=== PATIENT | male | born 1975 | race Caucasian/White ===

== ENCOUNTER 2023-06-25 08:58 | Emergency (ER) | payer MEDICAID, SELFPAY ==
[2023-06-25] VITALS (7 sets, daily range): BP systolic 121–164; BP diastolic 74–105; PULSE 65–87; RESP 20–22; TEMP 36.2–37; O2SAT 99–100
--- NOTE | 2023-06-25 08:45 | RT.EKG_ITS ---
APPROVED REPORT Exam: Resting ECG Reason for Exam: Chest pain Patient Location: E HR:79 bpm ECG Measurements Heart Rate 79 AXIS IL 130 P 31 QRSd 86 QRS 13 QT 379 T 35 QTc 435 Conclusion Sinus rhythm...normal P axis, V-rate 60- 99
[2023-06-25] MEDS: LORazepam 2 MG/ML VIAL 1 MG IVP ×3 (09:25→10:44)
[2023-06-25 09:42] LABS: Abs Immature Grans 0.09 10^3/uL (0.0-0.06); Absolute Basophil Count 0.06 10^3/uL (0.0-0.2); Absolute Eosinophil Count 0.18 10^3/uL (0.0-0.7); Absolute Lymphocyte Count 2.83 10^3/uL (1.2-3.4); Absolute Monocyte Count 0.95 10^3/uL (0.1-0.8); Basophils % 0.4 %; Eosinophils % 1.3 %; HCT 34.5 % (40.0-50.0); HGB 11.7 g/dL (13.5-17.5); Immature Grans % 0.6 %; Lymphocytes % 19.9 %; MCH 27.9 pg (27.0-33.0); MCHC 33.9 % (32.0-36.0); MCV 82 fL (80-95); Monocytes % 6.7 %; Neutrophils % 71.1 %; Platelet Count 399 10^3/uL (130-400); RDW 15.1 % (11.8-14.1); RDW-SD 44.1 fL
--- NOTE | 2023-06-25 09:45 | DI.RAD_ITS ---
Exam(s) XR CHEST 2V PA LATERAL EXAM: XR CHEST 2V PA LATERAL CLINICAL HISTORY: chest pain TECHNIQUE: 2D digital imaging was performed of the chest. Two images were obtained. PA and lateral views were obtained. COMPARISON: No exams were available for comparison FINDINGS: MEDIASTINUM: Normal. HEART: Normal. PULMONARY VASCULATURE: Normal. LUNGS: Clear. PLEURAL SPACE: No pleural effusion or pneumothorax. BONE:Within normal limits for the patient's age. OTHER FINDINGS:Normal. IMPRESSION: No acute pulmonary findings. DATA REPOSITORY: RADIATION DOSE DELIVERED:
[2023-06-25 10:21] LABS: ALT 29 U/L (16-63); AST 15 U/L (15-37); Albumin 3.7 g/dL (3.4-5.0); Alkaline Phosphatase 81 U/L (46-116); BUN 12 mg/dL (7-18); Bilirubin, Total 0.5 mg/dL (0.2-1.0); CREATININE 1.2 mg/dL (0.70-1.30); Calcium 9.4 mg/dL (8.5-10.1); Chloride 106 mmol/L (98-107); Glucose 117 mg/dL (74-106); Lipase 50 U/L (16-77); Potassium 3.5 mmol/L (3.5-5.1); Sodium 142 mmol/L (136-145); TSH (W/Ref FT4) 2.04 uIU/mL (0.36-3.74); Total Protein 7.7 g/dL (6.4-8.2); Troponin I < 50 ng/L (< or =60)
[2023-06-25 10:22] LABS: ETHANOL BLOOD < 3.0 mg/dL (<10)
[2023-06-25 11:05] LABS: COVID-19 PCR Negative (Negative); Influenza A PCR Negative (Negative); Influenza B PCR Negative (Negative); RSV PCR Negative (Negative); Source Nasopharynx
[2023-06-25] MEDS: hydrOXYzine HCL 25 MG TAB 50 MG PO ×2 (11:30→21:05)
--- NOTE | 2023-06-25 12:16 | W.ED.GENAD ---
Discharge Plan Discharge Details Chief Complaint: Chest Pain Primary Care Provider: Dane Contreras ED Provider: Hermila Toledo Home Meds and New Rx's Prescriptions: No Action ibuprofen 200 MG tablet 400 mg PO QID HPI <BERNADETTE Camacho Last Filed: 06/25/23 13:48> General Date/Time Provider Initiated Documentation: 06/25/23 08:59. HPI Narrative: This 47-year-old male with history of polysubstance abuse, most recently fentanyl inhalation presents with report of suicidal ideation with worsening depression. Has had chest pain for the past 3 days denies any associated shortness of breath or nausea or vomiting. Denies known cardiac history. Denies cocaine use. History of anxiety with similar presentation. Denies any calf pain or swelling or history of coagulopathy. Specifically no history of recent flights, surgeries, long drives for pulmonary embolism. Patient is resting comfortably in the room at time of reassessment, he does appear anxious. Denies exertional chest pain or shortness of breath. Has not previously had a stress test. Related Data Home Medications Medication Instructions Recorded Confirmed ibuprofen 200 mg tablet 400 mg PO QID 04/27/17 06/25/23 Allergies Allergy/AdvReac Type Severity Reaction Status Date / Time No Known Drug Allergies Allergy Unknown Unverified 07/08/17 13:56 General Stated Complaint: Chest Pain BOBBY: 2 Exam <BERNADETTE Camacho Last Filed: 06/25/23 13:48> Narrative Exam Narrative: Alert, oriented, pupils equal round reactive to light and accommodation, lungs clear to auscultation bilaterally, cardiac rate rhythm regular, reproducible chest wall pain, no rashes or lesions, no abdominal tenderness, no pallor, alert and oriented x 4, no peripheral edema, distal pulses intact, nontender calf exam Course <BERNADETTE Camacho Last Filed: 06/25/23 13:48> Vital Signs Vital signs: Vital Signs Temperature 37.0 C 06/25/23 08:57 Pulse 87 06/25/23 08:57 Respiratory Rate 20 06/25/23 08:57 Blood Pressure 155/105 H 06/25/23 08:57 Pulse Oximetry 100 06/25/23 08:57 Temperature 37.0 C 06/25/23 08:57 Temperature Source Temporal Artery Scan 06/25/23 08:57 Pulse 87 06/25/23 08:57 Pulse 65 06/25/23 09:50 Respiratory Rate 22 06/25/23 09:50 Respiratory Effort Incrsd Work of Breathing 06/25/23 09:07 Respiratory Depth Normal 06/25/23 09:07 Respiratory Pattern Normal 06/25/23 09:07 Blood Pressure 155/105 H 06/25/23 08:57 Blood Pressure Position Sitting 06/25/23 08:57 Pulse Oximetry 100 06/25/23 08:57 Oxygen Delivery Method Room Air 06/25/23 08:57 Oxygen Flow Rate 0 06/25/23 08:57 Pain Level 7 06/25/23 09:07 Lab/Test Results Lab/Test Results: Laboratory Tests Range/Units 06/25/23 06/25/23 06/25/23 09:20 09:20 09:20 WBC (4.4-10.8) 10^3/uL 14.20 H RBC (4.36-5.78) 10^6/uL 4.20 L Hgb (13.5-17.5) g/dL 11.7 L Hct (40.0-50.0) % 34.5 L MCV (80-95) fL 82 MCH (27.0-33.0) pg 27.9 MCHC (32.0-36.0) % 33.9 RDW (11.8-14.1) % 15.1 H Plt Count (130-400) 10^3/uL 399 MPV (8.0-11.0) fL 10.0 Immature Gran % % 0.6 Neutrophils % % 71.1 Lymphocytes % % 19.9 Monocytes % % 6.7 Eosinophils % % 1.3 Basophils % % 0.4 Nucleated RBC % (0.0-0.3) % 0.0 Absolute Neutrophils (1.2-6.7) 10^3/uL 10.10 H Absolute Lymphocytes (1.2-3.4) 10^3/uL 2.83 Absolute Monocytes (0.1-0.8) 10^3/uL 0.95 H Absolute Eosinophils (0.0-0.7) 10^3/uL 0.18 Absolute Basophils (0.0-0.2) 10^3/uL 0.06 Sodium (136-145) mmol/L 142 Potassium (3.5-5.1) mmol/L 3.5 Chloride (98-107) mmol/L 106 Carbon Dioxide (21.0-32.0) mmol/L 23.0 Anion Gap (3-11) mmol/L 13.0 H BUN (7-18) mg/dL 12 Creatinine (0.70-1.30) mg/dL 1.2 Est GFR (CKD-EPI 2020) (mL/min/1.73m2) 74.60 Glucose (74-106) mg/dL 117 H Calcium (8.5-10.1) mg/dL 9.4 Total Bilirubin (0.2-1.0) mg/dL 0.5 AST (15-37) U/L 15 ALT (16-63) U/L 29 Alkaline Phosphatase (46-116) U/L 81 Troponin I (< or =60) ng/L < 50 Cancelled Total Protein (6.4-8.2) g/dL 7.7 Albumin (3.4-5.0) g/dL 3.7 Lipase (16-77) U/L 50 TSH (0.36-3.74) uIU/mL 2.04 Ethyl Alcohol (<10) mg/dL < 3.0 Cancelled COVID-19 Source SARS-CoV-2 (PCR) (Negative) Influenza Type A (PCR) (Negative) Influenza Type B (PCR) (Negative) RSV (PCR) (Negative) Range/Units 06/25/23 10:16 WBC (4.4-10.8) 10^3/uL RBC (4.36-5.78) 10^6/uL Hgb (13.5-17.5) g/dL Hct (40.0-50.0) % MCV (80-95) fL MCH (27.0-33.0) pg MCHC (32.0-36.0) % RDW (11.8-14.1) % Plt Count (130-400) 10^3/uL MPV (8.0-11.0) fL Immature Gran % % Neutrophils % % Lymphocytes % % Monocytes % % Eosinophils % % Basophils % % Nucleated RBC % (0.0-0.3) % Absolute Neutrophils (1.2-6.7) 10^3/uL Absolute Lymphocytes (1.2-3.4) 10^3/uL Absolute Monocytes (0.1-0.8) 10^3/uL Absolute Eosinophils (0.0-0.7) 10^3/uL Absolute Basophils (0.0-0.2) 10^3/uL Sodium (136-145) mmol/L Potassium (3.5-5.1) mmol/L Chloride (98-107) mmol/L Carbon Dioxide (21.0-32.0) mmol/L Anion Gap (3-11) mmol/L BUN (7-18) mg/dL Creatinine (0.70-1.30) mg/dL Est GFR (CKD-EPI 2020) (mL/min/1.73m2) Glucose (74-106) mg/dL Calcium (8.5-10.1) mg/dL Total Bilirubin (0.2-1.0) mg/dL AST (15-37) U/L ALT (16-63) U/L Alkaline Phosphatase (46-116) U/L Troponin I (< or =60) ng/L Total Protein (6.4-8.2) g/dL Albumin (3.4-5.0) g/dL Lipase (16-77) U/L TSH (0.36-3.74) uIU/mL Ethyl Alcohol (<10) mg/dL COVID-19 Source Nasopharynx SARS-CoV-2 (PCR) (Negative) Negative Influenza Type A (PCR) (Negative) Negative Influenza Type B (PCR) (Negative) Negative RSV (PCR) (Negative) Negative Medical Decision Making <BERNADETTE Camacho - Last Filed: 06/25/23 13:48> 39-year-old male, alert, oriented, of decisional capacity. Last used fentanyl approximately 4 days prior to arrival. Patient is in no acute distress, he is resting comfortably in room he has had 3 days of constant chest pain. He has received several milligrams of Ativan but continues to ask for Ativan and does not appear anxious so I will use small doses as needed. I will also give 50 mg of hydroxyzine. I do not think this is cardiac in nature. After patient was medically cleared with EKG that is nonischemic and negative troponin and labs, he was medically cleared and evaluated by mental health. He will be voluntary status for placement at this time. I have offered patient Suboxone and multiple occasions and he has declined. I will order Ativan and hydroxyzine as needed for anxiety. Patient denies any additional substance use. Chest x-ray without evidence of pneumonia or acute process. Gap mildly elevated, received 1 L of IV fluids. Will move to some ZB for further care and evaluation for suicidality and depression. CPSO ordered Quality:SDOH Health Related Social Needs: Health related social needs risk of homeless, food insecurity, transpo insecurity, material hardship <Hermila Toledo NP - Last Filed: 06/25/23 23:05> 39-year-old male, alert, oriented, of decisional capacity. Last used fentanyl approximately 4 days prior to arrival. Patient is in no acute distress, he is resting comfortably in room he has had 3 days of constant chest pain. He has received several milligrams of Ativan but continues to ask for Ativan and does not appear anxious so I will use small doses as needed. I will also give 50 mg of hydroxyzine. I do not think this is cardiac in nature. After patient was medically cleared with EKG that is nonischemic and negative troponin and labs, he was medically cleared and evaluated by mental health. He will be voluntary status for placement at this time. I have offered patient Suboxone and multiple occasions and he has declined. I will order Ativan and hydroxyzine as needed for anxiety. Patient denies any additional substance use. Chest x-ray without evidence of pneumonia or acute process. Gap mildly elevated, received 1 L of IV fluids. Will move to some ZB for further care and evaluation for suicidality and depression. CPSO ordered 1542: SJ: Assumed care of patient from colleague Trish FLEMING. At the time of sign out patient is calm and cooperative, awaiting voluntary placement for . 2144: Patient given Hydroxyzine 50 mg at 2100, now rocking back and forth, tearful, c/o anxiety. Lorazepam 0.5mg PO ordered. Care is to be handed off to the oncoming provider Elías Nicolas DO pending [facility] voluntary placement. Patient has remained cooperative. Vital signs of remained stable. Medical Records Medical records reviewed: Yes I reviewed the patient's medical records. Lab Data Lab results reviewed: Yes I reviewed the patient's lab results. Labs: Laboratory Tests Range/Units 06/25/23 06/25/2306/24/24 09:20 09:20 09:20 WBC (4.4-10.8) 10^3/uL 14.20 H RBC (4.36-5.78) 10^6/uL 4.20 L Hgb (13.5-17.5) g/dL 11.7 L Hct (40.0-50.0) % 34.5 L MCV (80-95) fL 82 MCH (27.0-33.0) pg 27.9 MCHC (32.0-36.0) % 33.9 RDW (11.8-14.1) % 15.1 H Plt Count (130-400) 10^3/uL 399 MPV (8.0-11.0) fL 10.0 Immature Gran % % 0.6 Neutrophils % % 71.1 Lymphocytes % % 19.9 Monocytes % % 6.7 Eosinophils % % 1.3 Basophils % % 0.4 Nucleated RBC % (0.0-0.3) % 0.0 Absolute Neutrophils (1.2-6.7) 10^3/uL 10.10 H Absolute Lymphocytes (1.2-3.4) 10^3/uL 2.83 Absolute Monocytes (0.1-0.8) 10^3/uL 0.95 H Absolute Eosinophils (0.0-0.7) 10^3/uL 0.18 Absolute Basophils (0.0-0.2) 10^3/uL 0.06 Sodium (136-145) mmol/L 142 Potassium (3.5-5.1) mmol/L 3.5 Chloride (98-107) mmol/L 106 Carbon Dioxide (21.0-32.0) mmol/L 23.0 Anion Gap (3-11) mmol/L 13.0 H BUN (7-18) mg/dL 12 Creatinine (0.70-1.30) mg/dL 1.2 Est GFR (CKD-EPI 2020) (mL/min/1.73m2) 74.60 Glucose (74-106) mg/dL 117 H Calcium (8.5-10.1) mg/dL 9.4 Total Bilirubin (0.2-1.0) mg/dL 0.5 AST (15-37) U/L 15 ALT (16-63) U/L 29 Alkaline Phosphatase (46-116) U/L 81 Troponin I (< or =60) ng/L < 50 Cancelled Total Protein (6.4-8.2) g/dL 7.7 Albumin (3.4-5.0) g/dL 3.7 Lipase (16-77) U/L 50 TSH (0.36-3.74) uIU/mL 2.04 Urine Opiates Screen (Negative) Urine Methadone Screen (Negative) Ur Barbiturates Screen (Negative) Ur Tricyclics Screen (Negative) Ur Amphetamines Screen (Negative) U Benzodiazepines Scrn (Negative) Urine Cocaine Screen (Negative) Ur THC Screen (Negative) Ethyl Alcohol (<10) mg/dL < 3.0 Cancelled COVID-19 Source SARS-CoV-2 (PCR) (Negative) Influenza Type A (PCR) (Negative) Influenza Type B (PCR) (Negative) RSV (PCR) (Negative) Range/Units 06/25/23 06/25/23 10:16 13:25 WBC (4.4-10.8) 10^3/uL RBC (4.36-5.78) 10^6/uL Hgb (13.5-17.5) g/dL Hct (40.0-50.0) % MCV (80-95) fL MCH (27.0-33.0) pg MCHC (32.0-36.0) % RDW (11.8-14.1) % Plt Count (130-400) 10^3/uL MPV (8.0-11.0) fL Immature Gran % % Neutrophils % % Lymphocytes % % Monocytes % % Eosinophils % % Basophils % % Nucleated RBC % (0.0-0.3) % Absolute Neutrophils (1.2-6.7) 10^3/uL Absolute Lymphocytes (1.2-3.4) 10^3/uL Absolute Monocytes (0.1-0.8) 10^3/uL Absolute Eosinophils (0.0-0.7) 10^3/uL Absolute Basophils (0.0-0.2) 10^3/uL Sodium (136-145) mmol/L Potassium (3.5-5.1) mmol/L Chloride (98-107) mmol/L Carbon Dioxide (21.0-32.0) mmol/L Anion Gap (3-11) mmol/L BUN (7-18) mg/dL Creatinine (0.70-1.30) mg/dL Est GFR (CKD-EPI 2020) (mL/min/1.73m2) Glucose (74-106) mg/dL Calcium (8.5-10.1) mg/dL Total Bilirubin (0.2-1.0) mg/dL AST (15-37) U/L ALT (16-63) U/L Alkaline Phosphatase (46-116) U/L Troponin I (< or =60) ng/L Total Protein (6.4-8.2) g/dL Albumin (3.4-5.0) g/dL Lipase (16-77) U/L TSH (0.36-3.74) uIU/mL Urine Opiates Screen (Negative) Negative Urine Methadone Screen (Negative) Negative Ur Barbiturates Screen (Negative) Negative Ur Tricyclics Screen (Negative) Negative Ur Amphetamines Screen (Negative) Negative U Benzodiazepines Scrn (Negative) Negative Urine Cocaine Screen (Negative) Negative Ur THC Screen (Negative) Negative Ethyl Alcohol (<10) mg/dL COVID-19 Source Nasopharynx SARS-CoV-2 (PCR) (Negative) Negative Influenza Type A (PCR) (Negative) Negative Influenza Type B (PCR) (Negative) Negative RSV (PCR) (Negative) Negative PFSH <BERNADETTE Camacho - Last Filed: 06/25/23 13:48> Medical History Obesity Chronic back pain Pulmonary nodules Renal colic Surgical History Excision, Pilonidal Cyst Family History Mother No problems noted. Father Diabetes Essential hypertension History of coronary artery stent placement Kidney stones Son No problems noted. Social History Smoking/Tobacco Use Status: Never Smoking risk assessment performed?: Yes Alcohol Intake: never Drug use: Never Housing: other Do you feel safe at home: No Do you feel safe in your relationship?: Yes Sign Out <BERNADETTE Camacho - Last Filed: 06/25/23 13:48> Sign Out Data: Sign Out Comment: hx of substance abuse( fentanyl) and SI/depression. pending voluntary placement for . Last updated by Trish Carter PA at 06/25/23 15:36 Sign Out Comment: Pending voluntary placement. History of fentanyl abuse. Patient has received hydroxyzine 50 mg and 0.5 mg of lorazepam. Has been sleeping throughout most of his stay. Remains cooperative. Last updated by Hermila Toledo NP at 06/25/23 23:04
--- NOTE | 2023-06-25 12:20 | PDOC.MHCN_ITS ---
Date of service: 06/25/23 Time of Service: 10:50 PHQ-9 Over the last 2 weeks, how often have you been bothered by any of the following problems? 1. Little interest or pleasure in doing things: nearly every day 2. Feeling down, depressed, or hopeless: nearly every day 3. Trouble falling or staying asleep, or sleeping too much: nearly every day 4. Feeling tired or having little energy: nearly every day 5. Poor appetite or overeating: nearly every day 6. Feeling bad about yourself - or that you are a failure or have let yourself and your family down: nearly every day 7. Trouble concentrating on things, such as reading the newspaper or watching television: nearly every day 8. Moving or speaking so slowly that other people could have noticed? - Or the opposite - being so fidgety or restless that you have been moving around a lot more than usual: nearly every day 9. Thoughts that you would be better off or of hurting yourself in some way: nearly every day Total score: 27 If you checked off any problems, how difficult have these problems made it for you to do your work, take care of things at home, or get along with other people?: extremely difficult Source: Developed by Drs. Nick Dinh, Leesa Ruffin, Satya Alvarez and colleagues, with an educational jorge alberto from [employer]. Suicide Severity Rate CSSRS Have you wished you were or wished you could go to sleep and not wake up?: Yes Have you actually had any thoughts of killing yourself?: Yes CSSRS2 Have you been thinking about how you might do this?: Yes Have you had these thoughts and had some intention of acting on them?: No Have you started to work out or worked out the details of how to kill yourself? Do you intend to carry out this plan?: No CSSRS3 Have you ever done anything, started to do anything or prepared to do anything to end your life?: No CSSRS4 Was this within the past three months?: No Screening Score Total Score: 4 Screening: Positive Mental Health Emergency Note Release [facility] release signed:: Yes Reason for Visit The client is not known to [facility]. The client presented to [facility] ED via EMS for chief complaint of chest pain. Per report of the client he has been having chest pain for the last 2-3 days, however was unsure if it was related to heart issues or anxiety. During [facility] provider Trish Brochures assessment of the client he endorsed suicidal ideations, however denied intent or plan. The client reports that he has never been hospitalized for his mental health, however has gone to [place] detox 2x for help with his substance use. This software writer meets in person with the client at [facility] ER. In the last 2 weeks has the pt presented for ES prior to today?: No Client Information Client is: New Well Housed: No,status: Homeless Stable housing Non Suicidal Self Injury Current: No History: No Safety Risk/Harm to Self or Others Current Ideation to Harm Self or Others: Yes to self. ( Client reports passive suicidal ideations, however denies plan. On a scale of 0-10 with 0 being that he will be safe if he leaves the hospital and 10 being that he will find a way to by suicide rates himself a 08/17. ) Intent: yes, has intent. Plan: no.does not have a plan. History of suicide attempt: No history of suicide attempt reported Risk: Does risk to harm exist?: yes. Access to means: No. Risk: Moderate Risk Duty to warn indicated: No Asssessment/Mental Status Appearance: Disheveled Attitude: Cooperative Behavior: Unremarkable Speech: Normal Affect: Flat and Cogruent with mood Mood: Sad, Stressed, Depressed and Anxious Thought process: Unremarkable Hallucinations: No Delusions: No Attention: Unremarkable Perception: Not impaired Orientation: Fully orientated Memory: Intact Insight: Fair Judgement: Fair Neurovegetative Symptoms Sleep: Decrease (The client reports that he has not slept in 7 days as he cannot get his mind to shut off. ) Appetitie: Decrease Interests: Decrease Energy: Decrease Libido: Not applicable Substance Use: Drug Issues: Other (Client reports substance use for the past 30 years with only 3 months of sobriety. The client reports last use 2-3 days ago where he smoked fentanyl. ) Do you use nicotine?: No Have you used substances in the last 7 days?: yes, Client reports substance use for the past 30 years with only 3 months of sobriety. The client reports last use 2-3 days ago where he smoked fentanyl. Additional Issues: Assaultive/Threatening Behavior: No Medical Concerns: No Client engaged in active self harm w/weapon: No Threatening to run away: No Child reported abuse/neglect: No Voluntarily presenting for services: Yes Domestic violence is a concern: No Extreme Psychosis or extreme behavior is present: No Impression The client is a single 47 y/o male that is currently homeless and has been residing at the [facility] for the last month. The client uses he/him pronouns and reports that he is currently unemployed. All of the client's underrepresented categories were honored in this assessment. The client presents laying down in hospital bed dressed in hospital gown and covered up with a blanket when this software writer arrives in person. The client is cooperative with assessment and engages answering all of the questions. The client presents with flat affect and depressed mood giving minimal eye contact throughout the assessment. The client presents with symptoms most congruent to major depressive disorder as evidenced by self-report, decrease in interest and energy level, negative thoughts, decrease in appetite and sleep. The client currently reports that he is having thoughts of dying by suicide and rates his intent on a scale of 0-10 a 7/10. The client denies plan. The client reports that he feels like he is at rock bottom and there is no way up from how he is currently feeling. The client reports that he has been a substance user for the last 30 years and has only had 3 months of sobriety in the last 30 years, which was in 2010. The client is amendable to inpatient treatment at this time for both his mental health and substance abuse. Resources Reosurces reviewed and given:: [facility] (Referral for therapy and case management. ) Plan/Disposition Recommended Disposition: Hospitalization (Referrals will be sent to , [facility], [facility], and . ) No. Plan: This software writer discusses options with the client (inpatient versus outpatient). The client is interest in dual treatment for both his mental health and substance abuse. The client will remain at [facility] ED on voluntary status pending admission to an inpatient facility. The client will be re-assessed daily until placement is secured. Person reported agreement to plan: Yes Reports/communication Outcome discussed with: ED/Personnel (Verbal passover given to ED provider Trish Brochures)
[2023-06-25 13:48] LABS: *AMPHETAMINES SCREEN URINE Negative (Negative); *BARBITURATES SCREEN URINE Negative (Negative); *BENZODIAZEPINES SCREEN URINE Negative (Negative); Cannabinoids THC Negative (Negative); Cocaine Screen,Urine Negative (Negative); METHADONE URINE SCREEN Negative (Negative); OPIATES URINE SCREEN Negative (Negative); Tricyclic Antidepressants Negative (Negative)
--- NOTE | 2023-06-25 16:46 | PDOC.CMPRO ---
Date of service: 06/25/23 Time of Service: 16:46 Care Management Progress Note Progress Note Text Progress Note Text: SALOMÓN met with Conrado to discuss his plan of care. Per report, he is seeking inpatient psychiatric treatment. He currently has [facility], and although he has a [place] address, he has been living at the [facility] for about a month, utilizing a hotel voucher. CM discussed his preference for treatment ([place] vs [place]), and at that time was unsure if [place] hospitals would accept [facility]. He stated that he does not have a preference, other than to have treatment as soon as possible. He did express concern about changing his insurance to [facility], as his PCP is located in [place]. He stated that he does not know where he will be living group home. SALOMÓN spoke to [facility], [facility] that [facility]. She reported that referrals are being sent to both [place] and [place] facilities. Per RN, Conrado has been pleasant and appropriate in interactions. He has been sleeping most of the afternoon, since his arrival to [facility]. SALOMÓN will continue to follow. Status Status: Voluntary Reason for Wait: Inpatient Admission SDOH(Care Management) Screening Will the Patient Participate in the Screening?: Yes Do you worry about having a steady place to live?: yes Problems where you live: no known problems In the past 12 months, have you had to go without electric, gas, oil or water in your home?: yes Have you or anyone in your house had to go without enough food to eat?: yes Has lack of transportation kept you from medical appointments or from doing things needed for daily living?: yes Has anyone in your support network made you feel unsafe for any reason?: no Health Related Social Needs Health related social needs: housing instability, housed, with risk of homelessness(Z59.811), food insecurity(Z59.41), transportation insecurity(Z59.82) and material hardship(utilities)(Z59.87)
--- NOTE | 2023-06-25 16:54 | CMSP_ITS ---
Date of service: 06/25/23 Time of Service: 16:55 Care Management Safety Plan Status Status: Voluntary Reason for Wait Reason for Wait: Inpatient Admission Safety Plan Safety Plan: VOLUNTARY FOR INPATIENT PSYCHIATRIC STABILIZATION.? Patient is appropriate in all interactions since arriving at [facility]; Pt has demonstrated appropriate coping and communication skills, has articulated his or her needs and concerns and is fully engaged during staff interactions. Safety plan has been established with patient, and care team, to adhere to patient goals, identify restrictions based on behavioral status, address nutrition, and determine allowed personal belongings, tools for hygiene and personal care. Determine level of activity including ambulation, level of supervision, visitors, and determine privileges based on behaviors and level of engagement by pt. VOLUNTARY SAFETY PLAN: 1. Will remain on suicide precautions, in paper clothes 2. Will remain in Zone B under direct supervision of one-on-one staff at all times provided by [employer]; ABRAM, REPAIRER SCREEN CRUSHER store facility technician. 3. May have paper cups, plates, finger foods as well as a cardboard spoon with which to eat meals. 4. Follow [facility] Management of the Admitted Behavioral Health Patient policy. 5. Shower available in Zone B without restriction. 6. Personal belongings-soft items permitted at RN discretion. 7. Visitors- at RN discretion. 8. Activities: soft cart items approved per RN discretion. 9.? Bathroom available in Zone B without restriction. 10. Phone: incoming/outgoing calls limited to [facility] cordless phone at RN discretion. Due to VOLUNTARY status, if patient wishes to leave [facility], staff will contact [facility] Crisis Screener ([phone]) and Refinery Operator Visbreaking ([phone]) as soon as possible. In the event of elopement, notify [facility] Police ([phone]). Patient is currently voluntarily at [facility] and seeking inpatient admission when a bed becomes available. [facility] Frontline Twister Tender will continue seeking placement. Please contact the Refinery Operator Visbreaking ([phone]) and [facility] Twister Tender ([phone]) for any needed changes in the Safety Plan. Safety plan has been provided to interdepartmental care team.
--- NOTE | 2023-06-25 16:54 | PDOC.CMSAFE ---
Date of service: 06/25/23 Time of Service: 16:55 Care Management Safety Plan Status Status: Voluntary Reason for Wait Reason for Wait: Inpatient Admission Safety Plan Safety Plan: VOLUNTARY FOR INPATIENT PSYCHIATRIC STABILIZATION.? Patient is appropriate in all interactions since arriving at [facility]; Pt has demonstrated appropriate coping and communication skills, has articulated his or her needs and concerns and is fully engaged during staff interactions. Safety plan has been established with patient, and care team, to adhere to patient goals, identify restrictions based on behavioral status, address nutrition, and determine allowed personal belongings, tools for hygiene and personal care. Determine level of activity including ambulation, level of supervision, visitors, and determine privileges based on behaviors and level of engagement by pt. VOLUNTARY SAFETY PLAN: 1. Will remain on suicide precautions, in paper clothes 2. Will remain in Zone B under direct supervision of one-on-one staff at all times provided by [employer]; ABRAM, FREEZER MACHINE OPERATOR assembler for puller over machine. 3. May have paper cups, plates, finger foods as well as a cardboard spoon with which to eat meals. 4. Follow [facility] Management of the Admitted Behavioral Health Patient policy. 5. Shower available in Zone B without restriction. 6. Personal belongings-soft items permitted at RN discretion. 7. Visitors- at RN discretion. 8. Activities: soft cart items approved per RN discretion. 9.? Bathroom available in Zone B without restriction. 10. Phone: incoming/outgoing calls limited to [facility] cordless phone at RN discretion. Due to VOLUNTARY status, if patient wishes to leave [facility], staff will contact [facility] Crisis Screener ([phone]) and Dish Cloth Inspector ([phone]) as soon as possible. In the event of elopement, notify [facility] Police ([phone]). Patient is currently voluntarily at [facility] and seeking inpatient admission when a bed becomes available. [facility] Frontline Child Attendant will continue seeking placement. Please contact the Dish Cloth Inspector ([phone]) and [facility] Child Attendant ([phone]) for any needed changes in the Safety Plan. Safety plan has been provided to interdepartmental care team.
[2023-06-25] MEDS: LORazepam 0.5 MG TAB PO (21:51)
[2023-06-25] MEDS: LORazepam 0.5 MG TAB (23:59)
[2023-06-26 00:53] VITALS: BP 129/72; PULSE 98; RESP 21; O2SAT 96
--- NOTE | 2023-06-26 07:26 | ED.PROG_ITS ---
Date of service: 06/26/23 Time of Service: 07:26 Medical Decision Making Patient signed out to me requesting voluntary placement for depression and SI polysubstance abuse, no issues reported on previous shift. Patient currently calm and cooperative without acute complaints will continue to monitor until safe disposition found Quality:SDOH Health Related Social Needs: Health related social needs risk of homeless, food ins ecurity, transpo insecurity, material hardship Sign Out Sign Out Data: Sign Out Comment: hx of substance abuse( fentanyl) and SI/depression. pending voluntary placement for BH. Last updated by Trish Carter PA at 06/25/23 15:36 Sign Out Comment: Pending voluntary placement. History of fentanyl abuse. Patient has received hydroxyzine 50 mg and 0.5 mg of lorazepam. Has been sleeping throughout most of his stay. Remains cooperative. Last updated by Hermila Toledo NP at 06/25/23 23:04 Sign Out Comment: Patient stable throughout the night. Pending voluntary placement. No interventions needed. Last updated by Cullen Nicolas DO at 06/26/23 06:57 Discharge Plan Discharge Details Chief Complaint: Chest Pain Primary Care Provider: Dane Contreras ED Provider: Derek Jordan Home Meds and New Rx's Prescriptions: No Action ibuprofen 200 MG tablet 400 mg PO QID
[2023-06-26] MEDS: hydrOXYzine HCL 25 MG TAB 50 MG PO ×2 (09:41→17:05)
[2023-06-26 09:42] VITALS: BP 131/91; PULSE 70; RESP 18; TEMP 36.6; O2SAT 100
--- NOTE | 2023-06-26 14:20 | ED.PROG_ITS ---
Date of service: 06/26/23 Time of Service: 14:20 Medical Decision Making Having increased anxiety despite hydroxyzine, will try p.o. Ativan. Quality:SDOH Health Related Social Needs: Health related social needs risk of homeless, food ins ecurity, transpo insecurity, material hardship Sign Out Sign Out Data: Sign Out Comment: hx of substance abuse( fentanyl) and SI/depression. pending voluntary placement for . Last updated by Trish Carter PA at 06/25/23 15:36 Sign Out Comment: Pending voluntary placement. History of fentanyl abuse. Patient has received hydroxyzine 50 mg and 0.5 mg of lorazepam. Has been sleeping throughout most of his stay. Remains cooperative. Last updated by Hermila Toledo NP at 06/25/23 23:04 Sign Out Comment: Patient stable throughout the night. Pending voluntary placement. No interventions needed. Last updated by Cullen Nicolas DO at 06/26/23 06:57 Discharge Plan Discharge Details Chief Complaint: Chest Pain Primary Care Provider: Dane Contreras ED Provider: Derek Jordan Home Meds and New Rx's Prescriptions: No Action ibuprofen 200 MG tablet 400 mg PO QID
[2023-06-26] MEDS: LORazepam 1 MG TAB 2 MG PO (14:25)
--- NOTE | 2023-06-26 15:48 | CMSP_ITS ---
Date of service: 06/26/23 Time of Service: 15:48 Care Management Safety Plan Status Status: Voluntary Reason for Wait Reason for Wait: Inpatient Admission Safety Plan Safety Plan: VOLUNTARY FOR INPATIENT PSYCHIATRIC STABILIZATION.? Patient is appropriate in all interactions since arriving at [facility]; Pt has demonstrated appropriate coping and communication skills, has articulated his needs and concerns and is fully engaged during staff interactions. Safety plan has been established with patient, and care team, to adhere to patient goals, identify restrictions based on behavioral status, address nutrition, and determine allowed personal belongings, tools for hygiene and personal care. Determine level of activity including ambulation, level of supervision, visitors, and determine privileges based on behaviors and level of engagement by pt. VOLUNTARY SAFETY PLAN: 1. Will remain on suicide precautions, in paper clothes 2. Will remain in Zone B under direct supervision of one-on-one staff at all times provided by [employer]; ABRAM, SHOVEL ENGINEER cafeteria operator. 3. May have paper cups, plates, finger foods as well as a cardboard spoon with which to eat meals. 4. Follow [facility] Management of the Admitted Behavioral Health Patient policy. 5. Shower available in Zone B without restriction. 6. Personal belongings-soft items permitted at RN discretion. 7. Visitors- at RN discretion. 8. Activities: soft cart items approved per RN discretion. 9.? Bathroom available in Zone B without restriction. 10. Phone: incoming/outgoing calls limited to [facility] cordless phone at RN discretion. Due to VOLUNTARY status, if patient wishes to leave [facility], staff will contact [facility] Crisis Screener ([phone]) and City Carrier ([phone]) as soon as possible. In the event of elopement, notify [place] [employer] Police ([phone]). Patient is currently voluntarily at [facility] and seeking inpatient admission when a bed becomes available. [facility] Frontline Cosmetic Consultant will continue seeking placement. Please contact the City Carrier ([phone]) and [facility] Cosmetic Consultant ([phone]) for any needed changes in the Safety Plan. Safety plan has been provided to interdepartmental care team.
--- NOTE | 2023-06-26 15:48 | PDOC.CMSAFE ---
Date of service: 06/26/23 Time of Service: 15:48 Care Management Safety Plan Status Status: Voluntary Reason for Wait Reason for Wait: Inpatient Admission Safety Plan Safety Plan: VOLUNTARY FOR INPATIENT PSYCHIATRIC STABILIZATION.? Patient is appropriate in all interactions since arriving at [facility]; Pt has demonstrated appropriate coping and communication skills, has articulated his needs and concerns and is fully engaged during staff interactions. Safety plan has been established with patient, and care team, to adhere to patient goals, identify restrictions based on behavioral status, address nutrition, and determine allowed personal belongings, tools for hygiene and personal care. Determine level of activity including ambulation, level of supervision, visitors, and determine privileges based on behaviors and level of engagement by pt. VOLUNTARY SAFETY PLAN: 1. Will remain on suicide precautions, in paper clothes 2. Will remain in Zone B under direct supervision of one-on-one staff at all times provided by [employer]; ABRAM, CHILD ATTENDANT defense attorney. 3. May have paper cups, plates, finger foods as well as a cardboard spoon with which to eat meals. 4. Follow [facility] Management of the Admitted Behavioral Health Patient policy. 5. Shower available in Zone B without restriction. 6. Personal belongings-soft items permitted at RN discretion. 7. Visitors- at RN discretion. 8. Activities: soft cart items approved per RN discretion. 9.? Bathroom available in Zone B without restriction. 10. Phone: incoming/outgoing calls limited to [facility] cordless phone at RN discretion. Due to VOLUNTARY status, if patient wishes to leave [facility], staff will contact [facility] Crisis Screener ([phone]) and Remedy Developer ([phone]) as soon as possible. In the event of elopement, notify [place] [employer] Police ([phone]). Patient is currently voluntarily at [facility] and seeking inpatient admission when a bed becomes available. [facility] Frontline Project Management Specialist will continue seeking placement. Please contact the Remedy Developer ([phone]) and [facility] Project Management Specialist ([phone]) for any needed changes in the Safety Plan. Safety plan has been provided to interdepartmental care team.
--- NOTE | 2023-06-26 17:33 | ED.PROG_ITS ---
Date of service: 06/26/23 Time of Service: 17:00 Medical Decision Making Patient is pending voluntary psychiatric placement. He is medically cleared. The patient reports significant fentanyl use, approximately 10 g daily. Tried to alleviate some of his withdrawal symptoms with clonidine and Atarax which have been added to his daily medications. Single dose of methadone was given tonight to see if this is helpful. The patient has never been on methadone before so this may need to be readdressed and redosed. Quality:SDOH Health Related Social Needs: Health related social needs risk of homeless, food ins ecurity, transpo insecurity, material hardship Sign Out Sign Out Data: Sign Out Comment: hx of substance abuse( fentanyl) and SI/depression. pending voluntary placement for . Last updated by Trish Carter PA at 06/25/23 15:36 Sign Out Comment: Pending voluntary placement. History of fentanyl abuse. Patient has received hydroxyzine 50 mg and 0.5 mg of lorazepam. Has been sleeping throughout most of his stay. Remains cooperative. Last updated by Hermila Toledo NP at 06/25/23 23:04 Sign Out Comment: Patient stable throughout the night. Pending voluntary placement. No interventions needed. Last updated by Cullen Nicolas DO at 06/26/23 06:57 Sign Out Comment: voluntary for depression/si, increased anxiety earlier treated with oral lorazepam Last updated by Derek Jordan MD at 06/26/23 16:03 Discharge Plan Discharge Details Chief Complaint: Chest Pain Primary Care Provider: Dane Contreras ED Provider: Frank Austin Home Meds and New Rx's Prescriptions: No Action ibuprofen 200 MG tablet 400 mg PO QID
[2023-06-26 17:53] VITALS: BP 128/74; PULSE 88; RESP 20; TEMP 36.9; O2SAT 98
--- NOTE | 2023-06-26 17:54 | NUR.NOTE ---
Pt rings for nurse, exclaims that he is feeling very anxious, sweaty and like his heart is racing. Vitals taken and are WNL. call placed to provider who was unavailable. Pt appears pale and is sweaty Nursing Note:
[2023-06-26] MEDS: cloNIDine 0.1 MG TAB 0.2 MG PO (19:34)
--- NOTE | 2023-06-26 20:35 | MHPN_ITS ---
Date of service: 06/26/23 Time of Service: 02:00 PHQ-9 Over the last 2 weeks, how often have you been bothered by any of the following problems? 1. Little interest or pleasure in doing things: several days 2. Feeling down, depressed, or hopeless: several days 3. Trouble falling or staying asleep, or sleeping too much: several days 4. Feeling tired or having little energy: nearly every day 5. Poor appetite or overeating: several days 6. Feeling bad about yourself - or that you are a failure or have let yourself and your family down: several days 7. Trouble concentrating on things, such as reading the newspaper or watching television: several days 8. Moving or speaking so slowly that other people could have noticed? - Or the opposite - being so fidgety or restless that you have been moving around a lot more than usual: not at all 9. Thoughts that you would be better off or of hurting yourself in some way: several days Total score: 10 Source: Developed by Drs. Nick Dinh, Leesa Ruffin, Satya Alvarez and colleagues, with an educational jorge alberto from [employer]. Suicide Severity Rate CSSRS Have you wished you were or wished you could go to sleep and not wake up?: No Have you actually had any thoughts of killing yourself?: No CSSRS2 Have you been thinking about how you might do this?: Yes Have you had these thoughts and had some intention of acting on them?: No Have you started to work out or worked out the details of how to kill yourself? Do you intend to carry out this plan?: No CSSRS3 Have you ever done anything, started to do anything or prepared to do anything to end your life?: Yes CSSRS4 Was this within the past three months?: No Screening Score Total Score: 2 Screening: Positive Mental Health Emergency Note Release [facility] release signed:: Yes Reason for Visit Chest pain/substance use In the last 2 weeks has the pt presented for ES prior to today?: No Non Suicidal Self Injury Current: No History: No Safety Risk/Harm to Self or Others Current Ideation to Harm Self or Others: No Risk: Does risk to harm exist?: yes. Risk: Moderate Risk Duty to warn indicated: No Asssessment/Mental Status Appearance: Other Attitude: Cooperative Behavior: Unremarkable Speech: Normal Affect: Cogruent with mood Mood: Sad, Depressed and Anxious Thought process: Goal directed Hallucinations: No Delusions: No Attention: Unremarkable Perception: Not impaired Orientation: Fully orientated Memory: Intact Insight: Fair Judgement: Fair Neurovegetative Symptoms Sleep: Decrease Appetitie: Decrease Interests: Decrease Energy: Decrease Libido: Not applicable Substance Use: Other Drug Issues: Dependence Do you use nicotine?: No Have you used substances in the last 7 days?: yes, addiction counseling Additional Issues: Assaultive/Threatening Behavior: No Medical Concerns: Yes Client engaged in active self harm w/weapon: No Threatening to run away: No Child reported abuse/neglect: No Voluntarily presenting for services: Yes Domestic violence is a concern: No Extreme Psychosis or extreme behavior is present: No Impression Client is suffering from drug addiction and developed chest pain which prompted him to go the ER Resources Dorothy reviewed and given:: Noé and SYD Plan/Disposition Recommended Disposition: Other. Plan: Client will stay voluntary until a treatment placement is found and he is accepted. May consider EE if needed and meets criteria. Reports/communication Outcome discussed with: ED/Personnel
[2023-06-26 23:15] VITALS: BP 107/76; PULSE 97; RESP 18; TEMP 36.1; O2SAT 100
[2023-06-26] MEDS: Methadone 10 MG TAB PO (23:36)
[2023-06-27] MEDS: OLANZapine 10 MG TAB PO ×2 (01:11→20:17)
[2023-06-27] MEDS: diazePAM 5 MG TAB 10 MG PO (01:11)
--- NOTE | 2023-06-27 04:17 | ED.PROG_ITS ---
Date of service: 06/27/23 Time of Service: 04:17 Medical Decision Making Patient was stable throughout the shift, however at the beginning of the shift patient described feeling like he was crawling out of his skin, mood withdrawing. Patient had been regularly using large doses of fentanyl prior to transition here. He was given 10 mg of Suboxone by Dr. Austin prior to signout, however his symptoms remained. He did have clonidine ordered already. Patient requested additional supplementation. He was given oral Valium and 10 of Zyprexa and tolerated this well. He then subsequently rested well throughout the night. Quality:SDOH Health Related Social Needs: Health related social needs risk of homeless, food ins ecurity, transpo insecurity, material hardship Sign Out Sign Out Data: Sign Out Comment: hx of substance abuse( fentanyl) and SI/depression. pending voluntary placement for BH. Last updated by Trish Carter PA at 06/25/23 15:36 Sign Out Comment: Pending voluntary placement. History of fentanyl abuse. Patient has received hydroxyzine 50 mg and 0.5 mg of lorazepam. Has been sleeping throughout most of his stay. Remains cooperative. Last updated by Hermila Toledo NP at 06/25/23 23:04 Sign Out Comment: Patient stable throughout the night. Pending voluntary placement. No interventions needed. Last updated by Cullen Nicolas DO at 06/26/23 06:57 Sign Out Comment: voluntary for depression/si, increased anxiety earlier treated with oral lorazepam Last updated by Derek Jordan MD at 06/26/23 16:03 Sign Out Comment: Pending voluntary inpatient psychiatric placement Presenting with depression and suicidal ideation Daily fentanyl use, approximately 10 g Last use 3 days ago Vital signs are stable patient is endorsing many symptoms of opiate withdrawal. Atarax and clonidine have been ordered for patient's symptoms and a single dose of methadone was given tonight to see if this might be an effective medication for him. He may need additional doses and reevaluation of dosing schedule based on its effect for him. Last updated by Frank Austin MD at 06/27/23 00:17 Discharge Plan Discharge Details Chief Complaint: Chest Pain Primary Care Provider: Dane Contreras ED Provider: Cullen Nicolas Home Meds and New Rx's Prescriptions: No Action ibuprofen 200 MG tablet 400 mg PO QID
--- NOTE | 2023-06-27 07:24 | ED.PROG_ITS ---
Date of service: 06/27/23 Time of Service: 07:24 Medical Decision Making Patient seeking voluntary placement for depression/SI, also has had some opiate withdrawals/uses fentanyl quite frequently. Was given Zyprexa and Valium per signout with good effect. Currently sleeping in no distress, will continue to monitor until safe disposition found Quality:SDOH Health Related Social Needs: Health related social needs risk of homeless, food ins ecurity, transpo insecurity, material hardship Sign Out Sign Out Data: Sign Out Comment: hx of substance abuse( fentanyl) and SI/depression. pending voluntary placement for . Last updated by Trish Carter PA at 06/25/23 15:36 Sign Out Comment: Pending voluntary placement. History of fentanyl abuse. Patient has received hydroxyzine 50 mg and 0.5 mg of lorazepam. Has been sleeping throughout most of his stay. Remains cooperative. Last updated by Hermila Toledo NP at 06/25/23 23:04 Sign Out Comment: Patient stable throughout the night. Pending voluntary placement. No interventions needed. Last updated by Cullen Nicolas DO at 06/26/23 06:57 Sign Out Comment: voluntary for depression/si, increased anxiety earlier treated with oral lorazepam Last updated by Derek Jordan MD at 06/26/23 16:03 Sign Out Comment: Pending voluntary inpatient psychiatric placement Presenting with depression and suicidal ideation Daily fentanyl use, approximately 10 g Last use 3 days ago Vital signs are stable patient is endorsing many symptoms of opiate withdrawal. Atarax and clonidine have been ordered for patient's symptoms and a single dose of methadone was given tonight to see if this might be an effective medication for him. He may need additional doses and reevaluation of dosing schedule based on its effect for him. Last updated by Frank Austin MD at 06/27/23 00:17 Sign Out Comment: Patient stable throughout the night, pending voluntary placement. Did have notable symptoms of withdrawal even after the methadone, clonidine, and Atarax were administered. Gave additional Valium and Zyprexa which patient tolerated well. Last updated by Cullen Nicolas DO at 06/27/23 04:20 Discharge Plan Discharge Details Chief Complaint: Chest Pain Primary Care Provider: Dane Contreras ED Provider: Derek Jordan [place] Meds and New Rx's Prescriptions: No Action ibuprofen 200 MG tablet 400 mg PO QID
[2023-06-27] MEDS: cloNIDine 0.1 MG TAB PO ×3 (11:44→20:17)
[2023-06-27] MEDS: hydrOXYzine HCL 25 MG TAB 50 MG PO (11:44)
[2023-06-27 11:50] VITALS: BP 101/74; PULSE 91; O2SAT 100
--- NOTE | 2023-06-27 16:35 | W.EDPROG ---
Date of service: 06/27/23 Time of Service: 17:00 Medical Decision Making 47-year-old gentleman with a history of polysubstance abuse, currently pending inpatient voluntary psychiatric placement for evaluation of depression and suicidal ideation. Patient has been stable throughout this shift. He reports improvement today in his opiate withdrawal symptoms and reports that he did find significant relief with the medications that were given to him yesterday. These medications have been reordered and scheduled in addition to his as needed medications and patient has been stable throughout my shift. Quality:[facility] Health Related Social Needs: Health related social needs risk of homeless, food insecurity, transpo insecurity, material hardship Sign Out Sign Out Data: Sign Out Comment: hx of substance abuse( fentanyl) and SI/depression. pending voluntary placement for . Last updated by Trish Carter PA at 06/25/23 15:36 Sign Out Comment: Pending voluntary placement. History of fentanyl abuse. Patient has received hydroxyzine 50 mg and 0.5 mg of lorazepam. Has been sleeping throughout most of his stay. Remains cooperative. Last updated by Hermila Toledo NP at 06/25/23 23:04 Sign Out Comment: Patient stable throughout the night. Pending voluntary placement. No interventions needed. Last updated by Cullen Nicolas DO at 06/26/23 06:57 Sign Out Comment: voluntary for depression/si, increased anxiety earlier treated with oral lorazepam Last updated by Derek Jordan MD at 06/26/23 16:03 Sign Out Comment: Pending voluntary inpatient psychiatric placement Presenting with depression and suicidal ideation Daily fentanyl use, approximately 10 g Last use 3 days ago Vital signs are stable patient is endorsing many symptoms of opiate withdrawal. Atarax and clonidine have been ordered for patient's symptoms and a single dose of methadone was given tonight to see if this might be an effective medication for him. He may need additional doses and reevaluation of dosing schedule based on its effect for him. Last updated by Frank Austin MD at 06/27/23 00:17 Sign Out Comment: Patient stable throughout the night, pending voluntary placement. Did have notable symptoms of withdrawal even after the methadone, clonidine, and Atarax were administered. Gave additional Valium and Zyprexa which patient tolerated well. Last updated by Cullen Nicolas DO at 06/27/23 04:20 Sign Out Comment: Patient stable throughout the shift with no issues, still seeking voluntary placement for depression/SI Last updated by Derek Jordan MD at 06/27/23 15:55 Sign Out Comment: Pending voluntary inpatient psychiatric placement Presenting with depression and suicidal ideation Daily fentanyl use, approximately 10 g reports improvement in withdrawal symptoms and has requested the valium, zyprexa and methadone at bedtime again as this was very helpful for him to get rest. Last updated by Frank Austin MD at 06/27/23 21:19 Discharge Plan Discharge Details Chief Complaint: Chest Pain Primary Care Provider: Dane Contreras ED Provider: Frank Austin Home Meds and New Rx's Prescriptions: No Action ibuprofen 200 MG tablet 400 mg PO QID
--- NOTE | 2023-06-27 17:56 | CMSP_ITS ---
Date of service: 06/27/23 Time of Service: 17:56 Care Management Safety Plan Status Status: Voluntary Reason for Wait Reason for Wait: Inpatient Admission Safety Plan Safety Plan: VOLUNTARY FOR INPATIENT PSYCHIATRIC STABILIZATION.? Patient is appropriate in all interactions since arriving at [facility]; Pt has demonstrated appropriate coping and communication skills, has articulated his needs and concerns and is fully engaged during staff interactions. Safety plan has been established with patient, and care team, to adhere to patient goals, identify restrictions based on behavioral status, address nutrition, and determine allowed personal belongings, tools for hygiene and personal care. Determine level of activity including ambulation, level of supervision, visitors, and determine privileges based on behaviors and level of engagement by pt. VOLUNTARY SAFETY PLAN: 1. Will remain on suicide precautions, in paper clothes 2. Will remain in Zone B under direct supervision of one-on-one staff at all times provided by [employer]; [employer], SPEECH LANGUAGE PATHOLOGIST small lot operator. 3. May have paper cups, plates, finger foods as well as a cardboard spoon with which to eat meals. 4. Follow [facility] Management of the Admitted Behavioral Health Patient policy. 5. Shower available in Zone B without restriction. 6. Personal belongings-soft items permitted at RN discretion. 7. Visitors- at RN discretion. 8. Activities: soft cart items approved per RN discretion. 9.? Bathroom available in Zone B without restriction. 10. Phone: incoming/outgoing calls limited to [facility] cordless phone at RN discretion. Due to VOLUNTARY status, if patient wishes to leave [facility], staff will contact [facility] Crisis Screener ([phone]) and Barrel Lathe Operator Outside ([phone]) as soon as possible. In the event of elopement, notify [place] [employer] Police ([phone]). Patient is currently voluntarily at [facility] and seeking inpatient admission when a bed becomes available. [facility] Frontline Palliative Care Nurse will continue seeking placement. Please contact the Barrel Lathe Operator Outside ([phone]) and [facility] Palliative Care Nurse ([phone]) for any needed changes in the Safety Plan. Safety plan has been provided to interdepartmental care team.
--- NOTE | 2023-06-27 17:56 | PDOC.CMSAFE ---
Date of service: 06/27/23 Time of Service: 17:56 Care Management Safety Plan Status Status: Voluntary Reason for Wait Reason for Wait: Inpatient Admission Safety Plan Safety Plan: VOLUNTARY FOR INPATIENT PSYCHIATRIC STABILIZATION.? Patient is appropriate in all interactions since arriving at [facility]; Pt has demonstrated appropriate coping and communication skills, has articulated his needs and concerns and is fully engaged during staff interactions. Safety plan has been established with patient, and care team, to adhere to patient goals, identify restrictions based on behavioral status, address nutrition, and determine allowed personal belongings, tools for hygiene and personal care. Determine level of activity including ambulation, level of supervision, visitors, and determine privileges based on behaviors and level of engagement by pt. VOLUNTARY SAFETY PLAN: 1. Will remain on suicide precautions, in paper clothes 2. Will remain in Zone B under direct supervision of one-on-one staff at all times provided by [employer]; [employer]BRAM, CONFECTIONERY LABORATORY MANAGER continuous improvement coordinator. 3. May have paper cups, plates, finger foods as well as a cardboard spoon with which to eat meals. 4. Follow [facility] Management of the Admitted Behavioral Health Patient policy. 5. Shower available in Zone B without restriction. 6. Personal belongings-soft items permitted at RN discretion. 7. Visitors- at RN discretion. 8. Activities: soft cart items approved per RN discretion. 9.? Bathroom available in Zone B without restriction. 10. Phone: incoming/outgoing calls limited to [facility] cordless phone at RN discretion. Due to VOLUNTARY status, if patient wishes to leave [facility], staff will contact [facility] Crisis Screener ([phone]) and Lathe Operator ([phone]) as soon as possible. In the event of elopement, notify [place] [employer] Police ([phone]). Patient is currently voluntarily at [facility] and seeking inpatient admission when a bed becomes available. [facility] Frontline Agricultural Inspector will continue seeking placement. Please contact the Lathe Operator ([phone]) and [facility] Agricultural Inspector ([phone]) for any needed changes in the Safety Plan. Safety plan has been provided to interdepartmental care team.
[2023-06-27] MEDS: diazePAM 5 MG TAB PO (20:17)
--- NOTE | 2023-06-27 22:50 | ED.PROG_ITS ---
Date of service: 06/27/23 Time of Service: 22:50 Medical Decision Making This patient was signed out to me. Please see previous notes for H&P and initial eval. In brief 47yo [place] with SI, voluntary, medically cleared pending inpatient placement. No acute events overnight. Did not wake for assessment. Signed out to oncoming physician, plan remains as above. Quality:[facility] Health Related Social Needs: Health related social needs risk of homeless, food ins ecurity, transpo insecurity, material hardship Sign Out Sign Out Data: Sign Out Comment: hx of substance abuse( fentanyl) and SI/depression. pending voluntary placement for BH. Last updated by Trish Carter PA at 06/25/23 15:36 Sign Out Comment: Pending voluntary placement. History of fentanyl abuse. Patient has received hydroxyzine 50 mg and 0.5 mg of lorazepam. Has been sleeping throughout most of his stay. Remains cooperative. Last updated by Hermila Toledo NP at 06/25/23 23:04 Sign Out Comment: Patient stable throughout the night. Pending voluntary placement. No interventions needed. Last updated by Cullen Nicolas DO at 06/26/23 06:57 Sign Out Comment: voluntary for depression/si, increased anxiety earlier treated with oral lorazepam Last updated by Derek Jordan MD at 06/26/23 16:03 Sign Out Comment: Pending voluntary inpatient psychiatric placement Presenting with depression and suicidal ideation Daily fentanyl use, approximately 10 g Last use 3 days ago Vital signs are stable patient is endorsing many symptoms of opiate withdrawal. Atarax and clonidine have been ordered for patient's symptoms and a single dose of methadone was given tonight to see if this might be an effective medication for him. He may need additional doses and reevaluation of dosing schedule based on its effect for him. Last updated by Frank Austin MD at 06/27/23 00:17 Sign Out Comment: Patient stable throughout the night, pending voluntary placement. Did have notable symptoms of withdrawal even after the methadone, clonidine, and Atarax were administered. Gave additional Valium and Zyprexa which patient tolerated well. Last updated by Cullen Nicolas DO at 06/27/23 04:20 Sign Out Comment: Patient stable throughout the shift with no issues, still seeking voluntary placement for depression/SI Last updated by Derek Jordan MD at 06/27/23 15:55 Sign Out Comment: Pending voluntary inpatient psychiatric placement Presenting with depression and suicidal ideation Daily fentanyl use, approximately 10 g reports improvement in withdrawal symptoms and has requested the valium, zyprexa and methadone at bedtime again as this was very helpful for him to get rest. Last updated by Frank Austin MD at 06/27/23 21:19 Discharge Plan Discharge Details Chief Complaint: Chest Pain Primary Care Provider: Dane Contreras ED Provider: Lynn Kumar Home Meds and New Rx's Prescriptions: No Action ibuprofen 200 MG tablet 400 mg PO QID
[2023-06-28] MEDS: Methadone 10 MG TAB PO ×2 (00:35→08:19)
[2023-06-28] MEDS: hydrOXYzine HCL 25 MG TAB 50 MG PO (02:00)
[2023-06-28] MEDS: Ibuprofen 400 MG TAB PO ×2 (04:12→20:43)
[2023-06-28 07:07] VITALS: BP 121/76; PULSE 75; RESP 17; TEMP 36.7; O2SAT 97
--- NOTE | 2023-06-28 07:52 | ED.PROG_ITS ---
Date of service: 06/28/23 Time of Service: 07:53 Medical Decision Making Patient seeking voluntary placement for depression and thoughts of self-harm, no issues reported on previous shift. Currently, cooperative no acute complaints, will continue to monitor until safe disposition found Quality:[facility] Health Related Social Needs: Health related social needs risk of homeless, food ins ecurity, transpo insecurity, material hardship Sign Out Sign Out Data: Sign Out Comment: hx of substance abuse( fentanyl) and SI/depression. pending voluntary placement for BH. Last updated by Trish Carter PA at 06/25/23 15:36 Sign Out Comment: Pending voluntary placement. History of fentanyl abuse. Patient has received hydroxyzine 50 mg and 0.5 mg of lorazepam. Has been sleeping throughout most of his stay. Remains cooperative. Last updated by Hermila Toledo NP at 06/25/23 23:04 Sign Out Comment: Patient stable throughout the night. Pending voluntary placement. No interventions needed. Last updated by Cullen Nicolas DO at 06/26/23 06:57 Sign Out Comment: voluntary for depression/si, increased anxiety earlier treated with oral lorazepam Last updated by Derek Jordan MD at 06/26/23 16:03 Sign Out Comment: Pending voluntary inpatient psychiatric placement Presenting with depression and suicidal ideation Daily fentanyl use, approximately 10 g Last use 3 days ago Vital signs are stable patient is endorsing many symptoms of opiate withdrawal. Atarax and clonidine have been ordered for patient's symptoms and a single dose of methadone was given tonight to see if this might be an effective medication for him. He may need additional doses and reevaluation of dosing schedule based on its effect for him. Last updated by Frank Austin MD at 06/27/23 00:17 Sign Out Comment: Patient stable throughout the night, pending voluntary placement. Did have notable symptoms of withdrawal even after the methadone, clonidine, and Atarax were administered. Gave additional Valium and Zyprexa which patient tolerated well. Last updated by Cullen Nicolas DO at 06/27/23 04:20 Sign Out Comment: Patient stable throughout the shift with no issues, still seeking voluntary placement for depression/SI Last updated by Derek Jordan MD at 06/27/23 15:55 Sign Out Comment: Pending voluntary inpatient psychiatric placement Presenting with depression and suicidal ideation Daily fentanyl use, approximately 10 g reports improvement in withdrawal symptoms and has requested the valium, zyprexa and methadone at bedtime again as this was very helpful for him to get rest. Last updated by Frank Austin MD at 06/27/23 21:19 Sign Out Comment: Voluntary, SI, medically cleared. Opiate withdrawal, symptoms improving/near resolved. Pending placement. Last updated by Lynn Kumar MD at 06/28/23 06:00 Discharge Plan Discharge Details Chief Complaint: Chest Pain Primary Care Provider: Dane Contreras ED Provider: Derek Jordan Home Meds and New Rx's Prescriptions: No Action ibuprofen 200 MG tablet 400 mg PO QID
[2023-06-28] MEDS: cloNIDine 0.1 MG TAB PO ×3 (08:19→20:43)
--- NOTE | 2023-06-28 16:06 | ED.PROG_ITS ---
Date of service: 06/28/23 Time of Service: 16:07 Medical Decision Making I received signout on this 47-year-old male in the emergency department voluntarily in the setting of depression and suicidal ideation. No active behavioral issues last shift. Will update documentation as clinically warranted and sign patient out to the oncoming overnight provider. 10:15 PM No active behavioral issues last shift. I signed patient out to the oncoming overnight provider. Quality:[facility] Health Related Social Needs: Health related social needs risk of homeless, food ins ecurity, transpo insecurity, material hardship Sign Out Sign Out Data: Sign Out Comment: hx of substance abuse( fentanyl) and SI/depression. pending voluntary placement for BH. Last updated by Trish Carter PA at 06/25/23 15:36 Sign Out Comment: Patient seeking voluntary placement for depression and SI, no issues during shift. Last updated by Derek Jordan MD at 06/28/23 15:58 Sign Out Comment: Pending voluntary placement. History of fentanyl abuse. Patient has received hydroxyzine 50 mg and 0.5 mg of lorazepam. Has been sleeping throughout most of his stay. Remains cooperative. Last updated by Hermila Toledo NP at 06/25/23 23:04 Sign Out Comment: Patient stable throughout the night. Pending voluntary placement. No interventions needed. Last updated by Cullen Nicolas DO at 06/26/23 06:57 Sign Out Comment: voluntary for depression/si, increased anxiety earlier treated with oral lorazepam Last updated by Derek Jordan MD at 06/26/23 16:03 Sign Out Comment: Pending voluntary inpatient psychiatric placement Presenting with depression and suicidal ideation Daily fentanyl use, approximately 10 g Last use 3 days ago Vital signs are stable patient is endorsing many symptoms of opiate withdrawal. Atarax and clonidine have been ordered for patient's symptoms and a single dose of methadone was given tonight to see if this might be an effective medication for him. He may need additional doses and reevaluation of dosing schedule based on its effect for him. Last updated by Frank Austin MD at 06/27/23 00:17 Sign Out Comment: Patient stable throughout the night, pending voluntary placement. Did have notable symptoms of withdrawal even after the methadone, clonidine, and Atarax were administered. Gave additional Valium and Zyprexa which patient tolerated well. Last updated by Cullen Nicolas DO at 06/27/23 04:20 Sign Out Comment: Patient stable throughout the shift with no issues, still seeking voluntary placement for depression/SI Last updated by Derek Jordan MD at 06/27/23 15:55 Sign Out Comment: Pending voluntary inpatient psychiatric placement Presenting with depression and suicidal ideation Daily fentanyl use, approximately 10 g reports improvement in withdrawal symptoms and has requested the valium, zyprexa and methadone at bedtime again as this was very helpful for him to get rest. Last updated by Frank Austin MD at 06/27/23 21:19 Sign Out Comment: Voluntary, SI, medically cleared. Opiate withdrawal, symptoms improving/near resolved. Pending placement. Last updated by Lynn Kumar MD at 06/28/23 06:00 Discharge Plan Discharge Details Chief Complaint: Chest Pain Primary Care Provider: Dane Contreras ED Provider: Willian Mcnair Home Meds and New Rx's Prescriptions: No Action ibuprofen 200 MG tablet 400 mg PO QID
--- NOTE | 2023-06-28 16:37 | PDOC.MHPN2 ---
Date of service: 06/28/23 Time of Service: 12:00 PHQ-9 Over the last 2 weeks, how often have you been bothered by any of the following problems? 1. Little interest or pleasure in doing things: several days 2. Feeling down, depressed, or hopeless: several days 3. Trouble falling or staying asleep, or sleeping too much: several days 4. Feeling tired or having little energy: several days 5. Poor appetite or overeating: not at all 6. Feeling bad about yourself - or that you are a failure or have let yourself and your family down: several days 7. Trouble concentrating on things, such as reading the newspaper or watching television: not at all 8. Moving or speaking so slowly that other people could have noticed? - Or the opposite - being so fidgety or restless that you have been moving around a lot more than usual: not at all 9. Thoughts that you would be better off or of hurting yourself in some way: not at all Total score: 5 Source: Developed by Drs. Nick Dinh, Leesa Ruffin, Satya Alvarez and colleagues, with an educational jorge alberto from [employer]. Suicide Severity Rate CSSRS Have you wished you were or wished you could go to sleep and not wake up?: No Have you actually had any thoughts of killing yourself?: No CSSRS2 Have you been thinking about how you might do this?: No Have you had these thoughts and had some intention of acting on them?: No Have you started to work out or worked out the details of how to kill yourself? Do you intend to carry out this plan?: No CSSRS3 Have you ever done anything, started to do anything or prepared to do anything to end your life?: No CSSRS4 Was this within the past three months?: No Screening Score Total Score: 0 Screening: Negative Mental Health Emergency Note Release [facility] release signed:: Yes Reason for Visit Reassessment while at hospital In the last 2 weeks has the pt presented for ES prior to today?: No Client Information Client is: Adult Outpatient and Substance use Well Housed: No,status: Homeless Stable housing Non Suicidal Self Injury Current: No History: No Safety Risk/Harm to Self or Others Current Ideation to Harm Self or Others: No Asssessment/Mental Status Appearance: Other Attitude: Cooperative Behavior: Unremarkable Speech: Normal Affect: Normal Mood: Sad, Stressed and Anxious Thought process: Unremarkable Hallucinations: No Delusions: No Attention: Unremarkable Perception: Not impaired Orientation: Fully orientated Memory: Intact Insight: Fair Judgement: Fair Neurovegetative Symptoms Sleep: Decrease Appetitie: No change Interests: Decrease Energy: Decrease Libido: Not applicable Substance Use: Other Drug Issues: Dependence Do you use nicotine?: No Have you used substances in the last 7 days?: yes, inpatient as soon as posiible Additional Issues: Assaultive/Threatening Behavior: No Medical Concerns: No Client engaged in active self harm w/weapon: No Threatening to run away: No Child reported abuse/neglect: No Voluntarily presenting for services: Yes Domestic violence is a concern: No Extreme Psychosis or extreme behavior is present: No Impression Reassessing until he goes inpatient, he is maintaining Plan/Disposition Recommended Disposition: Hospitalization facilities contacted. Plan: Stay on Zone B until placement Facilities contacted if Applicable [facility] Not accepted, No bed available Reports/communication Outcome discussed with: ED/Personnel
--- NOTE | 2023-06-28 16:41 | CMPROGNOTE_ITS ---
Date of service: 06/28/23 Time of Service: 16:42 Care Management Progress Note Progress Note Text Progress Note Text: CM met with the primary RN and GLENNA Candelaria, in the ED to discuss Conrado's plan of care. Per report, Conrado has been sleeping a lot during his prolonged stay in the ED. Per RN, he was started on methadone, as he was showing signs of withdrawal; he will need to follow up with [facility] to continue MAT in the community. GLENNA Candelaria, stated that Conrado is resistant to going to [facility]; at that time there were no bed offers, but [facility] was reviewing his referral. CM will continue to follow. SDOH(Care Management) Screening Will the Patient Participate in the Screening?: Yes Do you worry about having a steady place to live?: yes Problems where you live: no known problems In the past 12 months, have you had to go without electric, gas, oil or water in your home?: yes Have you or anyone in your house had to go without enough food to eat?: yes Has lack of transportation kept you from medical appointments or from doing things needed for daily living?: yes Has anyone in your support network made you feel unsafe for any reason?: no Health Related Social Needs Health related social needs: housing instability, housed, with risk of homelessness(Z59.811), food insecurity(Z59.41), transportation insecurity(Z59.82) and material hardship(utilities)(Z59.87)
--- NOTE | 2023-06-28 16:41 | PDOC.CMSAFE ---
Date of service: 06/28/23 Time of Service: 16:41 Care Management Safety Plan Status Status: Voluntary Reason for Wait Reason for Wait: Inpatient Admission Safety Plan Safety Plan: VOLUNTARY FOR INPATIENT PSYCHIATRIC STABILIZATION.? Patient is appropriate in all interactions since arriving at [facility]; Pt has demonstrated appropriate coping and communication skills, has articulated his needs and concerns and is fully engaged during staff interactions. Safety plan has been established with patient, and care team, to adhere to patient goals, identify restrictions based on behavioral status, address nutrition, and determine allowed personal belongings, tools for hygiene and personal care. Determine level of activity including ambulation, level of supervision, visitors, and determine privileges based on behaviors and level of engagement by pt. VOLUNTARY SAFETY PLAN: 1. Will remain on suicide precautions, in paper clothes 2. Will remain in Zone B under direct supervision of one-on-one staff at all times provided by [employer]; [employer], [employer] network mgr. 3. May have paper cups, plates, finger foods as well as a cardboard spoon with which to eat meals. 4. Follow [facility] Management of the Admitted Behavioral Health Patient policy. 5. Shower available in Zone B without restriction. 6. Personal belongings-soft items permitted at RN discretion. 7. Visitors- at RN discretion. 8. Activities: soft cart items approved per RN discretion. 9.? Bathroom available in Zone B without restriction. 10. Phone: incoming/outgoing calls limited to [facility] cordless phone at RN discretion. Due to VOLUNTARY status, if patient wishes to leave [facility], staff will contact [facility] Crisis Screener ([phone]) and Spark Tester ([phone]) as soon as possible. In the event of elopement, notify [place] [employer] ([phone]). Patient is currently voluntarily at [facility] and seeking inpatient admission when a bed becomes available. [facility] Frontline Drywall Taper will continue seeking placement. Please contact the Spark Tester ([phone]) and [facility] Drywall Taper ([phone]) for any needed changes in the Safety Plan. Safety plan has been provided to interdepartmental care team.
[2023-06-28] MEDS: diazePAM 5 MG TAB PO (20:43)
[2023-06-28] MEDS: OLANZapine 10 MG TAB PO (20:44)
--- NOTE | 2023-06-29 00:21 | ED.PROG_ITS ---
Date of service: 06/29/23 Time of Service: 00:21 Medical Decision Making This patient was signed out to me. Please see previous notes for H&P and initial eval. In brief, 47yo M presenting with SI, voluntary, medically cleared, pending placement. Overnight no acute behavioral events. Did not wake for assessment. Signed out to oncoming physician, plan remains as above. Quality:SDOH Health Related Social Needs: Health related social needs risk of homeless, food ins ecurity, transpo insecurity, material hardship Sign Out Sign Out Data: Sign Out Comment: hx of substance abuse( fentanyl) and SI/depression. pending voluntary placement for BH. Last updated by Trish Carter PA at 06/25/23 15:36 Sign Out Comment: Patient seeking voluntary placement for depression and SI, no issues during shift. Last updated by Derek Jordan MD at 06/28/23 15:58 Sign Out Comment: No active behavioral issues last shift. Patient seeking voluntary placement. Last updated by Willian Mcnair MD at 06/28/23 22:18 Sign Out Comment: Pending voluntary placement. History of fentanyl abuse. Patient has received hydroxyzine 50 mg and 0.5 mg of lorazepam. Has been sleeping throughout most of his stay. Remains cooperative. Last updated by Hermila Toledo NP at 06/25/23 23:04 Sign Out Comment: Patient stable throughout the night. Pending voluntary placement. No interventions needed. Last updated by Cullen Nicolas DO at 06/26/23 06:57 Sign Out Comment: voluntary for depression/si, increased anxiety earlier treated with oral lorazepam Last updated by Derek Jordan MD at 06/26/23 16:03 Sign Out Comment: Pending voluntary inpatient psychiatric placement Presenting with depression and suicidal ideation Daily fentanyl use, approximately 10 g Last use 3 days ago Vital signs are stable patient is endorsing many symptoms of opiate withdrawal. Atarax and clonidine have been ordered for patient's symptoms and a single dose of methadone was given tonight to see if this might be an effective medication for him. He may need additional doses and reevaluation of dosing schedule based on its effect for him. Last updated by Frank Austin MD at 06/27/23 00:17 Sign Out Comment: Patient stable throughout the night, pending voluntary placement. Did have notable symptoms of withdrawal even after the methadone, clonidine, and Atarax were administered. Gave additional Valium and Zyprexa which patient tolerated well. Last updated by Cullen Nicolas DO at 06/27/23 04:20 Sign Out Comment: Patient stable throughout the shift with no issues, still seeking voluntary placement for depression/SI Last updated by Derek Jordan MD at 06/27/23 15:55 Sign Out Comment: Pending voluntary inpatient psychiatric placement Presenting with depression and suicidal ideation Daily fentanyl use, approximately 10 g reports improvement in withdrawal symptoms and has requested the valium, zyprexa and methadone at bedtime again as this was very helpful for him to get rest. Last updated by Frank Austin MD at 06/27/23 21:19 Sign Out Comment: Voluntary, SI, medically cleared. Opiate withdrawal, symptoms improving/near resolved. Pending placement. Last updated by Lynn Kumar MD at 06/28/23 06:00 Discharge Plan Discharge Details Chief Complaint: Chest Pain Primary Care Provider: Dane Contreras ED Provider: Lynn Kumar Home Meds and New Rx's Prescriptions: No Action ibuprofen 200 MG tablet 400 mg PO QID
[2023-06-29] MEDS: cloNIDine 0.1 MG TAB PO (07:52)
[2023-06-29] MEDS: Ibuprofen 400 MG TAB PO (07:52)
[2023-06-29] MEDS: Methadone 10 MG TAB PO (07:52)
[2023-06-29] MEDS: hydrOXYzine HCL 25 MG TAB 50 MG PO (07:53)
[2023-06-29 07:55] VITALS: BP 113/79; PULSE 69; RESP 18; TEMP 36.9; O2SAT 99
--- NOTE | 2023-06-29 13:04 | ED.PROG_ITS ---
Date of service: 06/29/23 Time of Service: 13:04 Medical Decision Making Resting comfortably no acute distress. Patient has been accepted to [facility]. Signout has been given. Quality:[facility] Health Related Social Needs: Health related social needs risk of homeless, food ins ecurity, transpo insecurity, material hardship Sign Out Sign Out Data: Sign Out Comment: hx of substance abuse( fentanyl) and SI/depression. pending voluntary placement for BH. Last updated by Trish Carter PA at 06/25/23 15:36 Sign Out Comment: Patient seeking voluntary placement for depression and SI, no issues during shift. Last updated by Derek Jordan MD at 06/28/23 15:58 Sign Out Comment: No active behavioral issues last shift. Patient seeking voluntary placement. Last updated by Willian Mcnair MD at 06/28/23 22:18 Sign Out Comment: Voluntary, SI, medically cleared, pending placement. Last updated by Lynn Kumar MD at 06/29/23 06:43 Sign Out Comment: Pending voluntary placement. History of fentanyl abuse. Patient has received hydroxyzine 50 mg and 0.5 mg of lorazepam. Has been sleeping throughout most of his stay. Remains cooperative. Last updated by Hermila Toledo NP at 06/25/23 23:04 Sign Out Comment: Patient stable throughout the night. Pending voluntary placement. No interventions needed. Last updated by Cullen Nicolas DO at 06/26/23 06:57 Sign Out Comment: voluntary for depression/si, increased anxiety earlier treated with oral lorazepam Last updated by Derek Jordan MD at 06/26/23 16:03 Sign Out Comment: Pending voluntary inpatient psychiatric placement Presenting with depression and suicidal ideation Daily fentanyl use, approximately 10 g Last use 3 days ago Vital signs are stable patient is endorsing many symptoms of opiate withdrawal. Atarax and clonidine have been ordered for patient's symptoms and a single dose of methadone was given tonight to see if this might be an effective medication for him. He may need additional doses and reevaluation of dosing schedule based on its effect for him. Last updated by Frank Austin MD at 06/27/23 00:17 Sign Out Comment: Patient stable throughout the night, pending voluntary placement. Did have notable symptoms of withdrawal even after the methadone, clonidine, and Atarax were administered. Gave additional Valium and Zyprexa which patient tolerated well. Last updated by Cullen Nicolas DO at 06/27/23 04:20 Sign Out Comment: Patient stable throughout the shift with no issues, still seeking voluntary placement for depression/SI Last updated by Derek Jordan MD at 06/27/23 15:55 Sign Out Comment: Pending voluntary inpatient psychiatric placement Presenting with depression and suicidal ideation Daily fentanyl use, approximately 10 g reports improvement in withdrawal symptoms and has requested the valium, zyprexa and methadone at bedtime again as this was very helpful for him to get rest. Last updated by Frank Austin MD at 06/27/23 21:19 Sign Out Comment: Voluntary, SI, medically cleared. Opiate withdrawal, symptoms improving/near resolved. Pending placement. Last updated by Lynn Kumar MD at 06/28/23 06:00 Discharge Plan Disposition Specific Psychiatric Facility: [facility] Discharge Details Chief Complaint: Chest Pain Primary Care Provider: Dane Contreras ED Provider: Ricky Lo Home Meds and New Rx's Prescriptions: No Action ibuprofen 200 MG tablet 400 mg PO QID
--- NOTE | 2023-06-29 17:10 | CMPROGNOTE_ITS ---
Date of service: 06/29/23 Time of Service: 17:10 Care Management Progress Note Progress Note Text Progress Note Text: SALOMÓN met with Conrado today, at his request. He asked about his discharge plan, as he has been in zone B for several days and stated that it feels like fdc. He was pleasant and polite, and reported that he has felt well supported while waiting for transfer to an inpatient psychiatric facility, but he would like to be able to go outside. While meeting, GLENNA Yanes, arrived to meet with Conrado and let him know that he was accepted at [facility], and that he would likely transfer there later today. After the MD to MD and RN to RN, ED progressive care unit registered nurse coordinated transport via [facility]. He transferred to this afternoon at approximately 13:11. Discharge Anticipated Barriers to Discharge: Bed availability Transportation: EMS ([facility]) Status Status: Voluntary Reason for Wait: Inpatient Admission SDOH(Care Management) Screening Will the Patient Participate in the Screening?: Yes Do you worry about having a steady place to live?: yes Problems where you live: no known problems In the past 12 months, have you had to go without electric, gas, oil or water in your home?: yes Have you or anyone in your house had to go without enough food to eat?: yes Has lack of transportation kept you from medical appointments or from doing things needed for daily living?: yes Has anyone in your support network made you feel unsafe for any reason?: no Health Related Social Needs Health related social needs: housing instability, housed, with risk of homelessness(Z59.811), food insecurity(Z59.41), transportation insecuri ty(Z59.82) and material hardship(utilities)(Z59.87)
== END 2023-06-29 13:09 ==
PROVIDERS: Physician Assistant; Emergency Provider Emergency Medicine; PCP Family Medicine
DX: R07.9 Chest pain, unspecified (principal); F11.20 Opioid dependence, uncomplicated; F32.A Depression, unspecified; Z59.41 Food insecurity; Z59.82 Transportation insecurity; Z59.87 Material hardship due to limited financial resources, not elsewhere classified; R45.851 Suicidal ideations; R06.02 Shortness of breath
CPT/HCPCS: 00123; 36415; 80053; 80307; 83690; 87637; 93005; 96127; 99285; 71046; 80320; 84443; 84484; 85025; 93010; J2060